=== PATIENT | female | born 1960 | race Hispanic/Latino ===

== ENCOUNTER 2020-12-05 16:25 | Emergency (ER) | payer SELFPAY ==
[2020-12-05 16:49] LABS: BASOPHILS % (AUTO) 0.9 % (0.0-5.0); EOSINOPHILS % (AUTO) 1.6 % (0.0-8.0); HEMATOCRIT 39.6 % (36-48); LYMPHOCYTES % (AUTO) 38.2 % (21.0-51.0); MEAN CORPUSCULAR HEMOGLOBIN 33.5 pg (27.0-33.0); MEAN CORPUSCULAR HGB CONC 35.9 g/dL (32.0-36.0); MEAN CORPUSCULAR VOLUME 93.4 fL (79-99); MONOCYTES % (AUTO) 9.7 % (3.0-13.0); NEUTROPHILS % (AUTO) 49.2 % (40.0-77.0); PLATELET COUNT (AUTO) 215 K/uL (130-400); RED BLOOD CELL COUNT(AUTO) 4.24 MIL/uL (4.00-5.50); RED CELL DISTRIBUTION WIDTH 11.8 % (11.0-15.5); WHITE BLOOD COUNT (AUTO) 5.6 K/uL (4.8-10.8)
[2020-12-05 17:02] LABS: INR 0.98 (0.85-1.15); PROTHROMBIN TIME 10.7 SEC (9.6-11.6)
[2020-12-05 17:03] LABS: PARTIAL THROMBOPLASTIN TIME 24.3 SEC (26.3-35.5)
[2020-12-05 17:15] LABS: ALANINE AMINOTRANSFERASE 106 U/L (12-78); ALBUMIN 4.3 g/dL (3.5-5.0); ASPARTATE AMINOTRANSFERASE 125 U/L (10-37); BILIRUBIN,TOTAL 0.3 mg/dL (0.2-1.0); CARBON DIOXIDE 26 mmol/L (21-32); CHLORIDE 102 mmol/L (101-111); CREATININE 0.8 mg/dL (0.5-1.5); GLOMERULAR FILTR. RATE CALC 78 mL/min (>60); GLUCOSE,RANDOM 117 mg/dL (70-105); POTASSIUM 3.9 mmol/L (3.5-5.1); SODIUM SERUM 139 mmol/L (136-145); TOTAL PROTEIN, SERUM 8.3 g/dL (6.0-8.3); UREA NITROGEN, BLOOD 4 mg/dL (7-18)
[2020-12-05 17:20] LABS: ACETAMINOPHEN < 1 mcg/mL (10-30); SALICYLATE < 2.8 mg/dL (2.8-20.0)
[2020-12-05 17:57] LABS: AMPHET/METH SCREEN,URINE NEGATIVE (NEGATIVE); BARBITURATE SCREEN, URINE NEGATIVE (NEGATIVE); BENZODIAZEPINES SCREEN,URINE NEGATIVE (NEGATIVE); CANNABINOID SCREEN,URINE NEGATIVE (NEGATIVE); COCAINE SCREEN,URINE POSITIVE (NEGATIVE); OPIATE SCREEN,URINE NEGATIVE (NEGATIVE); PHENCYCLIDINE SCREEN,URINE NEGATIVE (NEGATIVE)
== END 2020-12-05 19:03 | disposition home or self-care (01) ==
LOC: EDH 16:25
DX: F10.10 Alcohol abuse, uncomplicated (principal); F14.10 Cocaine abuse, uncomplicated; Z20.822 Contact with and (suspected) exposure to COVID-19
CPT/HCPCS: 36415; 80053; 80305; 84484; 85025; 85610; 85730; 87426; 93005; 99284; G0481

== ENCOUNTER 2023-01-28 21:23 | Inpatient (IN) | payer OTHER ==
[~2023-01-28] VITALS: Ht 154.9 cm; Wt 54.4 kg
[2023-01-28] MEDS ORDERED: ONDANSETRON 4MG INJ ONE (22:42)
[2023-01-28 23:08] LABS: BASOPHILS % (AUTO) 0.6 % (0.0-5.0); HEMATOCRIT 31.4 % (36-48); LYMPHOCYTES % (AUTO) 35.6 % (21.0-51.0); MEAN CORPUSCULAR HEMOGLOBIN 34.4 pg (27.0-33.0); MEAN CORPUSCULAR HGB CONC 35.7 g/dL (32.0-36.0); MEAN CORPUSCULAR VOLUME 96.3 fL (79-99); MONOCYTES % (AUTO) 12.2 % (3.0-13.0); NEUTROPHILS % (AUTO) 50.2 % (40.0-77.0); PLATELET COUNT (AUTO) 131 K/uL (130-400); RED BLOOD CELL COUNT(AUTO) 3.26 MIL/uL (4.00-5.50); RED CELL DISTRIBUTION WIDTH 11.2 % (11.0-15.5); WHITE BLOOD COUNT (AUTO) 4.9 K/uL (4.8-10.8)
[2023-01-28 23:23] LABS: CREATININE 0.8 mg/dL (0.5-1.5); POTASSIUM 4.6 mmol/L (3.5-5.1)
[2023-01-28 23:27] LABS: INR 1.02 (0.85-1.15); PROTHROMBIN TIME 11.1 SEC (9.6-11.6)
[2023-01-28 23:28] LABS: ALBUMIN 3.7 g/dL (3.5-5.0); PARTIAL THROMBOPLASTIN TIME 28.9 SEC (26.3-35.5); TOTAL PROTEIN, SERUM 7.3 g/dL (6.0-8.3)
[2023-01-29] LABS: APPEARANCE,URINE CLEAR (CLEAR); BILIRUBIN,URINE NEGATIVE (NEGATIVE); COLOR,URINE COLORLESS (YELLOW); GLUCOSE, URINE (UA) NEGATIVE (NEGATIVE); KETONES,URINE NEGATIVE (NEGATIVE); LEUKOCYTE ESTERASE ,URINE NEGATIVE Leu/uL (NEGATIVE); NITRATE,URINE NEGATIVE (NEGATIVE); OCCULT BLOOD,URINE SMALL (NEGATIVE); PH,URINE 5.5 (5.0-8.0); PROTEIN,URINE NEGATIVE (NEGATIVE); UROBILINOGEN,URINE 0.2 mg/dL (0.2-1.0)
[2023-01-29 00:06] LABS: BACTERIA,URINE RARE /HPF (None Seen); MUCUS,URINE RARE LPF (None Seen); RBC,URINE 0-1 /HPF (0-1)
[2023-01-29] MEDS ORDERED: ACETAMINOPHEN 325 MG TAB PO PRN ×2 (02:00)
[2023-01-29] MEDS ORDERED: ONDANSETRON 4MG INJ IV PRN (02:00)
[2023-01-29] MEDS: 0.9%NACL 1000ML 1,000 ML IV SCH ×2 (04:10→13:36)
[2023-01-29] MEDS: PANTOPRAZOLE 40 MG/VIAL IVP SCH ×2 (04:10→09:28)
[2023-01-29] MEDS: INSULIN HUMULIN R 100 UNIT/ML 3ML SQ SCH ×3 (06:00→17:32)
[2023-01-29 08:37] LABS: BASOPHILS % (AUTO) 0.9 % (0.0-5.0); EOSINOPHILS % (AUTO) 2.1 % (0.0-8.0); HEMATOCRIT 32.2 % (36-48); LYMPHOCYTES % (AUTO) 21.2 % (21.0-51.0); MEAN CORPUSCULAR HEMOGLOBIN 34.7 pg (27.0-33.0); MEAN CORPUSCULAR HGB CONC 35.7 g/dL (32.0-36.0); MEAN CORPUSCULAR VOLUME 97.3 fL (79-99); MONOCYTES % (AUTO) 13.9 % (3.0-13.0); NEUTROPHILS % (AUTO) 61.7 % (40.0-77.0); PLATELET COUNT (AUTO) 119 K/uL (130-400); RED BLOOD CELL COUNT(AUTO) 3.31 MIL/uL (4.00-5.50); RED CELL DISTRIBUTION WIDTH 11.3 % (11.0-15.5); WHITE BLOOD COUNT (AUTO) 4.3 K/uL (4.8-10.8)
[2023-01-29 08:48] LABS: CREATININE 0.8 mg/dL (0.5-1.5); POTASSIUM 4.4 mmol/L (3.5-5.1)
[2023-01-29 08:50] LABS: ALBUMIN 3.6 g/dL (3.5-5.0); TOTAL PROTEIN, SERUM 7.4 g/dL (6.0-8.3)
[2023-01-29 09:06] LABS: % IRON SATURATION 95.4 % (22-44)
[2023-01-29 18:13] VITALS: BP 117/54
== END 2023-01-29 19:35 | disposition left against medical advice (07) | DRG 378 ==
LOC: EDH 21:23 → EDHIP 21:24
PROVIDERS: ADMIT Hospitalist; ATTEND Hospitalist
DX: K92.2 Gastrointestinal hemorrhage, unspecified (principal); E87.1 Hypo-osmolality and hyponatremia; K80.20 Calculus of gallbladder without cholecystitis without obstruction; E11.9 Type 2 diabetes mellitus without complications; E78.5 Hyperlipidemia, unspecified; I10 Essential (primary) hypertension; F41.9 Anxiety disorder, unspecified
CPT/HCPCS: 36415; 74176; 80053; 81001; 82140; 82270; 82948; 83540; 83550; 83605; 84484; 85025; 85610; 85730; 86850; 86900; 86901; 93005; C9113; G0378; J2405; J7030

== ENCOUNTER 2024-04-19 22:55 | Inpatient (IN) | payer SELFPAY ==
[~2024-04-19] VITALS: Ht 156.2 cm; Wt 62.6 kg
[2024-04-19 23:15] LABS: BASOPHILS # (AUTO) 0.04 K/uL (0.00-0.20); BASOPHILS % (AUTO) 0.4 % (0.0-5.0); EOSINOPHILS # (AUTO) 0.16 K/uL (0.00-0.70); EOSINOPHILS % (AUTO) 1.5 % (0.0-8.0); HEMATOCRIT 26.5 % (36-48); IMMATURE GRANULOCYTE ABSOLUTE 0.05 K/uL (0-1); LYMPHOCYTES # (AUTO) 2.1 K/uL (1.0-4.8); LYMPHOCYTES % (AUTO) 20.4 % (21.0-51.0); MEAN CORPUSCULAR HEMOGLOBIN 33.1 pg (27.0-33.0); MEAN CORPUSCULAR HGB CONC 34.3 g/dL (32.0-36.0); MEAN CORPUSCULAR VOLUME 96.4 fL (79-99); MONOCYTES # (AUTO) 1.5 K/uL (0.1-1.0); MONOCYTES % (AUTO) 14.5 % (3.0-13.0); NEUTROPHILS # (AUTO) 6.5 K/uL (1.8-7.7); NEUTROPHILS % (AUTO) 62.7 % (40.0-77.0); PLATELET COUNT (AUTO) 219 K/uL (130-400); RED BLOOD CELL COUNT(AUTO) 2.75 MIL/uL (4.00-5.50); RED CELL DISTRIBUTION WIDTH 19.7 % (11.0-15.5); WHITE BLOOD COUNT (AUTO) 10.4 K/uL (4.8-10.8)
[2024-04-19 23:29] LABS: ALBUMIN 2.2 g/dL (3.5-5.0); BILIRUBIN,TOTAL 1.9 mg/dL (0.2-1.0); POTASSIUM 3.1 mmol/L (3.5-5.1); TOTAL PROTEIN, SERUM 7.1 g/dL (6.0-8.3)
[2024-04-20] VITALS (8 sets, daily range): BP systolic 96–130; BP diastolic 48–104; PULSE 71–84; RESP 17–20; TEMP 97.8–98.7; O2SAT 96–100
[2024-04-20] MEDS: ondanSETRON 4MG INJ IVP ONE (00:08)
[2024-04-20] MEDS: morPHINE 4 MG SYG IVP ONE ×2 (00:08→04:40)
[2024-04-20] MEDS: ZOSYN 3.375GM +NS 50ML IVPB ONE (04:39)
[2024-04-20] MEDS: 0.9%NACL 1000ML 1,000 ML IV SCH (06:14)
[2024-04-20] MEDS: PoTASSium chloRIDE 20MEQ/100ML 100 ML IV PRN (06:14)
[2024-04-20 06:28] LABS: APPEARANCE,URINE CLEAR (CLEAR); BILIRUBIN,URINE NEGATIVE (NEGATIVE); COLOR,URINE YELLOW (YELLOW); GLUCOSE, URINE (UA) NEGATIVE (NEGATIVE); KETONES,URINE NEGATIVE (NEGATIVE); LEUKOCYTE ESTERASE ,URINE NEGATIVE Leu/uL (NEGATIVE); NITRATE,URINE NEGATIVE (NEGATIVE); OCCULT BLOOD,URINE NEGATIVE (NEGATIVE); PH,URINE 6.5 (5.0-8.0); PROTEIN,URINE NEGATIVE (NEGATIVE); UROBILINOGEN,URINE 0.2 mg/dL (0.2-1.0)
[2024-04-20 06:39] LABS: BASOPHILS # (AUTO) 0.03 K/uL (0.00-0.20); BASOPHILS % (AUTO) 0.5 % (0.0-5.0); EOSINOPHILS # (AUTO) 0.12 K/uL (0.00-0.70); EOSINOPHILS % (AUTO) 1.9 % (0.0-8.0); HEMATOCRIT 25.8 % (36-48); IMMATURE GRANULOCYTE ABSOLUTE 0.02 K/uL (0-1); LYMPHOCYTES # (AUTO) 1.3 K/uL (1.0-4.8); LYMPHOCYTES % (AUTO) 20.3 % (21.0-51.0); MEAN CORPUSCULAR HEMOGLOBIN 32.8 pg (27.0-33.0); MEAN CORPUSCULAR HGB CONC 32.9 g/dL (32.0-36.0); MEAN CORPUSCULAR VOLUME 99.6 fL (79-99); MONOCYTES # (AUTO) 0.9 K/uL (0.1-1.0); MONOCYTES % (AUTO) 14.3 % (3.0-13.0); NEUTROPHILS % (AUTO) 62.7 % (40.0-77.0); PLATELET COUNT (AUTO) 170 K/uL (130-400); RED BLOOD CELL COUNT(AUTO) 2.59 MIL/uL (4.00-5.50); RED CELL DISTRIBUTION WIDTH 19.8 % (11.0-15.5); WHITE BLOOD COUNT (AUTO) 6.3 K/uL (4.8-10.8)
[2024-04-20 06:51] LABS: ALBUMIN 1.8 g/dL (3.5-5.0); BILIRUBIN,TOTAL 1.6 mg/dL (0.2-1.0); CREATININE 0.9 mg/dL (0.5-1.0); MAGNESIUM 1.9 mg/dL (1.80-2.40); POTASSIUM 3.4 mmol/L (3.5-5.1); TOTAL PROTEIN, SERUM 6.7 g/dL (6.0-8.3)
[2024-04-20 07:04] LABS: % IRON SATURATION 22.1 % (22-44)
[2024-04-20 07:15] LABS: ADD UA MICROSCOPIC NO
[2024-04-20] MEDS ORDERED: METF-446 PO (08:14)
[2024-04-20] MEDS ORDERED: ESCI5TAB PO (08:14)
[2024-04-20] MEDS ORDERED: AZIL80TA PO (08:14)
[2024-04-20] MEDS ORDERED: PITA4TAB2 PO (08:14)
[2024-04-20] MEDS ORDERED: ESCI-8 PO (08:14)
[2024-04-20] MEDS: PANTOPrazole 40 MG/VIAL IVP SCH (09:03)
[2024-04-20] MEDS: DEXTROSE 50%-WATER 50 ML DISP.SYRIN IV ONE ×3 (11:50→20:05)
[2024-04-20] MEDS: ZOSYN 3.375GM+NS 50ML 50 ML IV SCH (13:38)
[2024-04-20] MEDS: hydroMORPHone 0.5 MG SYG (0.5MG/0.5ML) IVP ONE (13:52)
[2024-04-20] MEDS ORDERED: morPHINE 2 MG SYG IVP PRN (14:00)
[2024-04-20] MEDS: atorVAStatin 20 MG TABLET PO SCH (20:05)
[2024-04-20] MEDS: DEXTROSE 5 % AND 0.9 % NACL 1,000 ML IV SCH (20:05)
[2024-04-20] MEDS: hydroMORPHone 1 MG INJ IVP PRN (20:13)
[2024-04-21] VITALS (12 sets, daily range): BP systolic 105–133; BP diastolic 43–62; PULSE 78–103; RESP 16–19; TEMP 98–98.9; O2SAT 98–100
[2024-04-21 04:00] LABS: BASOPHILS # (AUTO) 0.04 K/uL (0.00-0.20); BASOPHILS % (AUTO) 0.6 % (0.0-5.0); EOSINOPHILS # (AUTO) 0.15 K/uL (0.00-0.70); EOSINOPHILS % (AUTO) 2.2 % (0.0-8.0); HEMATOCRIT 24.8 % (36-48); IMMATURE GRANULOCYTE ABSOLUTE 0.02 K/uL (0-1); LYMPHOCYTES # (AUTO) 0.8 K/uL (1.0-4.8); LYMPHOCYTES % (AUTO) 11.8 % (21.0-51.0); MEAN CORPUSCULAR HEMOGLOBIN 32.5 pg (27.0-33.0); MEAN CORPUSCULAR HGB CONC 32.7 g/dL (32.0-36.0); MEAN CORPUSCULAR VOLUME 99.6 fL (79-99); MONOCYTES # (AUTO) 0.9 K/uL (0.1-1.0); MONOCYTES % (AUTO) 12.6 % (3.0-13.0); NEUTROPHILS % (AUTO) 72.5 % (40.0-77.0); PLATELET COUNT (AUTO) 177 K/uL (130-400); RED BLOOD CELL COUNT(AUTO) 2.49 MIL/uL (4.00-5.50); RED CELL DISTRIBUTION WIDTH 19.8 % (11.0-15.5); WHITE BLOOD COUNT (AUTO) 6.9 K/uL (4.8-10.8)
[2024-04-21 04:13] LABS: INR 1.54 (0.85-1.15); PROTHROMBIN TIME 16.1 SEC (9.6-11.6)
[2024-04-21 04:14] LABS: PARTIAL THROMBOPLASTIN TIME 32.8 SEC (26.3-35.5)
[2024-04-21 04:17] LABS: ALBUMIN 1.6 g/dL (3.5-5.0); CREATININE 0.8 mg/dL (0.5-1.0); MAGNESIUM 1.5 mg/dL (1.80-2.40); POTASSIUM 3.8 mmol/L (3.5-5.1); TOTAL PROTEIN, SERUM 6.3 g/dL (6.0-8.3)
[2024-04-21] MEDS ORDERED: NON-FORMULARY MEDICATION 1 EACH (Escitalopram Oxalate 10 MG) PO SCH (09:00)
[2024-04-21 10:26] LABS: % IRON SATURATION 49.3 % (22-44)
[2024-04-21 13:47] LABS: BODY FLUID RBC 145 /cu. mm.; BODY FLUID WBC 39 /cu. mm.
[2024-04-21 14:37] LABS: APPEARANCE BODY FLUID CLEAR (CLEAR); COLOR,BODY FLUID YELLOW (LT YELLOW); SPECIMENTYPE,BODY FLUID ASCITES; TOTAL VOLUME,BODY FLUID 1500 mL
[2024-04-21 16:50] LABS: HEPATITIS A IGM ANTIBODY Non-Reactive (Nonreactive); HEPATITIS B CORE IGM ANTIBODY Non-Reactive (Negative); HEPATITIS B SURFACE ANTIGEN Non-Reactive (Nonreactive); HEPATITIS C ANTIBODY Non-Reactive (Nonreactive)
[2024-04-21 18:04] LABS: BF LYMPHOCYTE 85 %; BF MONOCYTE 10 %; BF TOTAL CELLS COUNTED 100
[2024-04-22 04:47] VITALS: BP 94/51; PULSE 82; RESP 18; TEMP 98.1
[2024-04-22 05:30] LABS: BASOPHILS # (AUTO) 0.02 K/uL (0.00-0.20); BASOPHILS % (AUTO) 0.3 % (0.0-5.0); EOSINOPHILS # (AUTO) 0.12 K/uL (0.00-0.70); EOSINOPHILS % (AUTO) 1.9 % (0.0-8.0); HEMATOCRIT 22.4 % (36-48); IMMATURE GRANULOCYTE ABSOLUTE 0.04 K/uL (0-1); LYMPHOCYTES # (AUTO) 1.2 K/uL (1.0-4.8); LYMPHOCYTES % (AUTO) 19.2 % (21.0-51.0); MEAN CORPUSCULAR HGB CONC 32.6 g/dL (32.0-36.0); MEAN CORPUSCULAR VOLUME 101.4 fL (79-99); MONOCYTES # (AUTO) 0.8 K/uL (0.1-1.0); MONOCYTES % (AUTO) 12.9 % (3.0-13.0); NEUTROPHILS % (AUTO) 65.1 % (40.0-77.0); PLATELET COUNT (AUTO) 142 K/uL (130-400); RED BLOOD CELL COUNT(AUTO) 2.21 MIL/uL (4.00-5.50); RED CELL DISTRIBUTION WIDTH 19.4 % (11.0-15.5); WHITE BLOOD COUNT (AUTO) 6.2 K/uL (4.8-10.8)
[2024-04-22 05:53] LABS: ALBUMIN 1.4 g/dL (3.5-5.0); BILIRUBIN,TOTAL 2.2 mg/dL (0.2-1.0); CREATININE 0.7 mg/dL (0.5-1.0); MAGNESIUM 1.5 mg/dL (1.80-2.40); POTASSIUM 3.1 mmol/L (3.5-5.1); TOTAL PROTEIN, SERUM 5.5 g/dL (6.0-8.3)
[2024-04-22 08:00] VITALS: BP 92/52; PULSE 73; RESP 16; TEMP 98; O2SAT 98
[2024-04-22] MEDS: MAGNESIUM 2GM PREMIX 50ML 50 ML IV PRN (08:59)
[2024-04-22] MEDS: PoTASSium chloRIDE 20MEQ ER 20 MEQ ERTAB PO PRN (09:18)
[2024-04-22 12:00] VITALS: BP 97/54; PULSE 76; RESP 16; TEMP 97.8
[2024-04-22] MEDS: ondanSETRON 4MG INJ IV PRN (14:58)
[2024-04-22 16:00] VITALS: BP 108/56; PULSE 80; RESP 16; TEMP 98
[2024-04-22 17:45] LABS: MAGNESIUM 2.4 mg/dL (1.80-2.40); POTASSIUM 4.6 mmol/L (3.5-5.1)
[2024-04-22 20:00] VITALS: BP 90/51; PULSE 70; RESP 18; TEMP 98.3; O2SAT 98
[2024-04-23] VITALS (28 sets, daily range): BP systolic 91–141; BP diastolic 34–84; PULSE 68–107; RESP 12–20; TEMP 97.6–98.7; O2SAT 95
[2024-04-23 05:02] LABS: BASOPHILS # (AUTO) 0.04 K/uL (0.00-0.20); BASOPHILS % (AUTO) 0.6 % (0.0-5.0); EOSINOPHILS # (AUTO) 0.18 K/uL (0.00-0.70); EOSINOPHILS % (AUTO) 2.7 % (0.0-8.0); HEMATOCRIT 23.4 % (36-48); IMMATURE GRANULOCYTE ABSOLUTE 0.03 K/uL (0-1); LYMPHOCYTES # (AUTO) 1.1 K/uL (1.0-4.8); LYMPHOCYTES % (AUTO) 17.4 % (21.0-51.0); MEAN CORPUSCULAR HGB CONC 32.1 g/dL (32.0-36.0); MEAN CORPUSCULAR VOLUME 103.1 fL (79-99); MONOCYTES # (AUTO) 0.7 K/uL (0.1-1.0); MONOCYTES % (AUTO) 11.1 % (3.0-13.0); NEUTROPHILS # (AUTO) 4.4 K/uL (1.8-7.7); NEUTROPHILS % (AUTO) 67.7 % (40.0-77.0); PLATELET COUNT (AUTO) 163 K/uL (130-400); RED BLOOD CELL COUNT(AUTO) 2.27 MIL/uL (4.00-5.50); RED CELL DISTRIBUTION WIDTH 19.6 % (11.0-15.5); WHITE BLOOD COUNT (AUTO) 6.6 K/uL (4.8-10.8)
[2024-04-23 05:10] LABS: CREATININE 0.8 mg/dL (0.5-1.0); MAGNESIUM 2.1 mg/dL (1.80-2.40); POTASSIUM 4.8 mmol/L (3.5-5.1)
[2024-04-23] MEDS: INDOMETHACIN 100 MG SUPP.RECT RC ONE (11:30)
[2024-04-23] MEDS ORDERED: LIDOCAINE PF 100MG/5ML (2%) SYRINGE 5ML ONE (12:45)
[2024-04-23] MEDS ORDERED: FENTanyl CITRate PF 50 MCG/1 ML 2ML VIAL ONE (12:45)
[2024-04-23] MEDS ORDERED: ondanSETRON 4MG INJ ONE (12:46)
[2024-04-23] MEDS ORDERED: proPOFol 10 MG/ML 20ML VIAL IV ONE (12:46)
[2024-04-23] MEDS ORDERED: IOHEXOL-350 50ML VIAL IV ONE (14:04)
[2024-04-24] VITALS (15 sets, daily range): BP systolic 90–130; BP diastolic 38–74; PULSE 67–99; RESP 16–21; TEMP 97.6–98.4; O2SAT 99–100
[2024-04-24 09:03] LABS: BASOPHILS # (AUTO) 0.02 K/uL (0.00-0.20); BASOPHILS % (AUTO) 0.3 % (0.0-5.0); EOSINOPHILS # (AUTO) 0.14 K/uL (0.00-0.70); EOSINOPHILS % (AUTO) 2.1 % (0.0-8.0); HEMATOCRIT 24.9 % (36-48); IMMATURE GRANULOCYTE ABSOLUTE 0.05 K/uL (0-1); LYMPHOCYTES # (AUTO) 0.7 K/uL (1.0-4.8); LYMPHOCYTES % (AUTO) 9.8 % (21.0-51.0); MEAN CORPUSCULAR HEMOGLOBIN 33.5 pg (27.0-33.0); MEAN CORPUSCULAR HGB CONC 32.1 g/dL (32.0-36.0); MEAN CORPUSCULAR VOLUME 104.2 fL (79-99); MONOCYTES # (AUTO) 0.8 K/uL (0.1-1.0); MONOCYTES % (AUTO) 11.4 % (3.0-13.0); NEUTROPHILS % (AUTO) 75.6 % (40.0-77.0); PLATELET COUNT (AUTO) 183 K/uL (130-400); RED BLOOD CELL COUNT(AUTO) 2.39 MIL/uL (4.00-5.50); RED CELL DISTRIBUTION WIDTH 19.5 % (11.0-15.5); WHITE BLOOD COUNT (AUTO) 6.6 K/uL (4.8-10.8)
[2024-04-24 09:16] LABS: CREATININE 0.8 mg/dL (0.5-1.0); POTASSIUM 3.9 mmol/L (3.5-5.1)
[2024-04-24 09:23] LABS: ALBUMIN 1.6 g/dL (3.5-5.0); BILIRUBIN,TOTAL 2.6 mg/dL (0.2-1.0); MAGNESIUM 1.8 mg/dL (1.80-2.40); TOTAL PROTEIN, SERUM 6.4 g/dL (6.0-8.3)
[2024-04-24] MEDS: hydroMORPHone 1 MG INJ IVP PRN (11:29)
[2024-04-24] MEDS ORDERED: LIDOCAINE HCL 400MG/20ML VIAL ONE (17:49)
[2024-04-24] MEDS ORDERED: HEParin-NS 1,000 UNIT/500 ML 500 ML IV ONE (17:50)
[2024-04-24] MEDS ORDERED: IOHEXOL-350 50ML VIAL IV ONE (17:50)
[2024-04-24] MEDS ORDERED: FENTanyl CITRate PF 50 MCG/1 ML 2ML VIAL ONE (18:14)
[2024-04-24] MEDS ORDERED: MIDAZOLAM HCL 1 MG/ML 2ML VIAL ONE (18:15)
[2024-04-25] VITALS (9 sets, daily range): BP systolic 99–130; BP diastolic 41–68; PULSE 20–99; RESP 18–20; TEMP 97.6–98.2; O2SAT 98–99
[2024-04-25 11:13] LABS: CREATININE 0.8 mg/dL (0.5-1.0); POTASSIUM 3.9 mmol/L (3.5-5.1)
[2024-04-25 11:20] LABS: ALBUMIN 1.4 g/dL (3.5-5.0); BILIRUBIN,TOTAL 2.5 mg/dL (0.2-1.0); MAGNESIUM 2.1 mg/dL (1.80-2.40); TOTAL PROTEIN, SERUM 6.2 g/dL (6.0-8.3)
[2024-04-25] MEDS: SIMETHICONE 80 MG TAB.CHEW PO SCH (12:12)
[2024-04-25] MEDS: acetaMINOPHEN WITH coDEINE 1 TAB TAB PO PRN (17:07)
[2024-04-25] MEDS: acetaMINOPHEN WITH coDEINE 1 TAB TAB PO ONE (19:58)
[2024-04-26] VITALS (8 sets, daily range): BP systolic 96–110; BP diastolic 42–58; PULSE 78–97; RESP 18–20; TEMP 97.1–98.4; O2SAT 96–98
[2024-04-26 05:18] LABS: BASOPHILS # (AUTO) 0.02 K/uL (0.00-0.20); BASOPHILS % (AUTO) 0.3 % (0.0-5.0); EOSINOPHILS # (AUTO) 0.13 K/uL (0.00-0.70); EOSINOPHILS % (AUTO) 2.1 % (0.0-8.0); IMMATURE GRANULOCYTE ABSOLUTE 0.03 K/uL (0-1); LYMPHOCYTES # (AUTO) 0.6 K/uL (1.0-4.8); LYMPHOCYTES % (AUTO) 9.5 % (21.0-51.0); MEAN CORPUSCULAR HEMOGLOBIN 32.6 pg (27.0-33.0); MEAN CORPUSCULAR HGB CONC 32.6 g/dL (32.0-36.0); MONOCYTES # (AUTO) 0.8 K/uL (0.1-1.0); MONOCYTES % (AUTO) 11.8 % (3.0-13.0); NEUTROPHILS # (AUTO) 4.8 K/uL (1.8-7.7); NEUTROPHILS % (AUTO) 75.8 % (40.0-77.0); PLATELET COUNT (AUTO) 139 K/uL (130-400); RED CELL DISTRIBUTION WIDTH 19.7 % (11.0-15.5); WHITE BLOOD COUNT (AUTO) 6.3 K/uL (4.8-10.8)
[2024-04-26 05:40] LABS: ALBUMIN 1.3 g/dL (3.5-5.0); BILIRUBIN,TOTAL 2.5 mg/dL (0.2-1.0); CREATININE 0.9 mg/dL (0.5-1.0); MAGNESIUM 1.8 mg/dL (1.80-2.40); TOTAL PROTEIN, SERUM 5.7 g/dL (6.0-8.3)
[2024-04-26 06:02] LABS: POTASSIUM 2.9 mmol/L (3.5-5.1)
[2024-04-26] MEDS: SIMETHICONE 80 MG TAB.CHEW PO ONE (06:05)
[2024-04-26] MEDS: PoTASSium chloRIDE 20MEQ/100ML 100 ML IV PRN (06:06)
[2024-04-26] MEDS: PoTASSium chl 10% ELIXIR 20MEQ 20 MEQ/15 ML UDCUP PO PRN (08:24)
[2024-04-26] MEDS: HYDROcodone/APAP 5/325 1 TAB TABLET PO PRN (11:23)
[2024-04-27 03:15] VITALS: BP 110/46; PULSE 91; RESP 16; TEMP 98.1
[2024-04-27 06:00] LABS: BASOPHILS # (AUTO) 0.02 K/uL (0.00-0.20); BASOPHILS % (AUTO) 0.3 % (0.0-5.0); EOSINOPHILS # (AUTO) 0.15 K/uL (0.00-0.70); EOSINOPHILS % (AUTO) 2.2 % (0.0-8.0); HEMATOCRIT 21.6 % (36-48); IMMATURE GRANULOCYTE ABSOLUTE 0.04 K/uL (0-1); LYMPHOCYTES # (AUTO) 0.9 K/uL (1.0-4.8); LYMPHOCYTES % (AUTO) 12.5 % (21.0-51.0); MEAN CORPUSCULAR HEMOGLOBIN 32.7 pg (27.0-33.0); MEAN CORPUSCULAR HGB CONC 32.9 g/dL (32.0-36.0); MEAN CORPUSCULAR VOLUME 99.5 fL (79-99); MONOCYTES # (AUTO) 0.7 K/uL (0.1-1.0); MONOCYTES % (AUTO) 10.6 % (3.0-13.0); NEUTROPHILS # (AUTO) 5.1 K/uL (1.8-7.7); NEUTROPHILS % (AUTO) 73.8 % (40.0-77.0); PLATELET COUNT (AUTO) 130 K/uL (130-400); RED BLOOD CELL COUNT(AUTO) 2.17 MIL/uL (4.00-5.50); RED CELL DISTRIBUTION WIDTH 20.4 % (11.0-15.5); WHITE BLOOD COUNT (AUTO) 6.9 K/uL (4.8-10.8)
[2024-04-27 06:09] LABS: INR 2.17 (0.85-1.15); PROTHROMBIN TIME 22.1 SEC (9.6-11.6)
[2024-04-27 06:25] LABS: ALBUMIN 1.1 g/dL (3.5-5.0); BILIRUBIN,TOTAL 3.2 mg/dL (0.2-1.0); MAGNESIUM 2.3 mg/dL (1.80-2.40); POTASSIUM 4.1 mmol/L (3.5-5.1); TOTAL PROTEIN, SERUM 5.4 g/dL (6.0-8.3)
[2024-04-27 08:00] VITALS: BP 95/44; PULSE 98; RESP 16; TEMP 98.7
[2024-04-27 12:00] VITALS: BP 98/51; PULSE 98; RESP 18; TEMP 98.7
[2024-04-27 12:17] LABS: HEMATOCRIT 23.9 % (36-48)
[2024-04-27] MEDS ORDERED: AMOX1TAB16 PO (13:00)
[2024-04-27] MEDS ORDERED: TRAM50TA4 PO (13:02)
== END 2024-04-27 17:30 | disposition home or self-care (01) | DRG 432 ==
LOC: EDH 22:55 → EDHIP 22:56 → 4AH 04-20 09:50
PROVIDERS: ADMIT Hospitalist; ATTEND Hospitalist
PROC: 0W9G3ZZ Drainage of Peritoneal Cavity, Percutaneous Approach (ICD-10-PCS; principal; 2024-04-21)
PROC: 0FJD8ZZ Inspection of Pancreatic Duct, Via Natural or Artificial Opening Endoscopic (ICD-10-PCS; 2024-04-23)
PROC: 0F943ZZ Drainage of Gallbladder, Percutaneous Approach (ICD-10-PCS; 2024-04-24)
DX: K74.60 Unspecified cirrhosis of liver (principal); K85.90 Acute pancreatitis without necrosis or infection, unspecified; K80.00 Calculus of gallbladder with acute cholecystitis without obstruction; D68.9 Coagulation defect, unspecified; K80.42 Calculus of bile duct with acute cholecystitis without obstruction; E44.0 Moderate protein-calorie malnutrition; R18.8 Other ascites; K76.0 Fatty (change of) liver, not elsewhere classified; E87.6 Hypokalemia; D64.9 Anemia, unspecified; I10 Essential (primary) hypertension; D69.6 Thrombocytopenia, unspecified; E11.9 Type 2 diabetes mellitus without complications; E78.00 Pure hypercholesterolemia, unspecified; F41.9 Anxiety disorder, unspecified; F32.A Depression, unspecified; R79.89 Other specified abnormal findings of blood chemistry; E78.5 Hyperlipidemia, unspecified; Z98.51 Tubal ligation status
CPT/HCPCS: 10030; 36415; 43260; 47490; 49083; 70450; 71045; 74018; 74176; 74181; 74328; 74330; 76705; 78226; 80048; 80053; 80074; 81003; 82150; 82550; 82607; 82728; 82746; 82948; 82977; 83540; 83550; 83615; 83690; 83735; 84132; 84484; 85014; 85018; 85025; 85610; 85730; 86140; 87071; 87205; 89051; 99156; 99157; A9537; C1729; C1769; C1894; G0378; J1170; J1644; J2001; J2250; J2270; J2405; J2470; J2543; J2704; J3010; J3475; J3480; J3490; J7030; J7070; Q9967; A4657; A7002; S8037

== ENCOUNTER 2024-05-06 09:26 | Inpatient (IN) | payer SELFPAY ==
[~2024-05-06] VITALS: Ht 152.4 cm; Wt 62.6 kg
[~2024-05-06 09:26] MED LIST: AMOX1TAB16 PO; AZIL80TA PO; ESCI5TAB PO; METF-446 PO; PITA4TAB2 PO; TRAM50TA4 PO
[2024-05-06 10:01] LABS: BASOPHILS # (AUTO) 0.02 K/uL (0.00-0.20); BASOPHILS % (AUTO) 0.2 % (0.0-5.0); EOSINOPHILS # (AUTO) 0.11 K/uL (0.00-0.70); EOSINOPHILS % (AUTO) 0.9 % (0.0-8.0); HEMATOCRIT 23.9 % (36-48); IMMATURE GRANULOCYTE ABSOLUTE 0.07 K/uL (0-1); LYMPHOCYTES # (AUTO) 0.8 K/uL (1.0-4.8); LYMPHOCYTES % (AUTO) 6.5 % (21.0-51.0); MEAN CORPUSCULAR HEMOGLOBIN 32.7 pg (27.0-33.0); MEAN CORPUSCULAR HGB CONC 34.7 g/dL (32.0-36.0); MEAN CORPUSCULAR VOLUME 94.1 fL (79-99); MONOCYTES % (AUTO) 8.1 % (3.0-13.0); NEUTROPHILS # (AUTO) 10.5 K/uL (1.8-7.7); NEUTROPHILS % (AUTO) 83.7 % (40.0-77.0); PLATELET COUNT (AUTO) 116 K/uL (130-400); RED BLOOD CELL COUNT(AUTO) 2.54 MIL/uL (4.00-5.50); RED CELL DISTRIBUTION WIDTH 17.5 % (11.0-15.5); WHITE BLOOD COUNT (AUTO) 12.5 K/uL (4.8-10.8)
[2024-05-06 10:06] LABS: CREATININE 3.1 mg/dL (0.5-1.0); POTASSIUM 4.2 mmol/L (3.5-5.1)
[2024-05-06 10:10] LABS: ALBUMIN 1.3 g/dL (3.5-5.0); BILIRUBIN,DIRECT 5.5 mg/dL (0.0-0.3); BILIRUBIN,TOTAL 6.6 mg/dL (0.2-1.0); TOTAL PROTEIN, SERUM 7.1 g/dL (6.0-8.3)
[2024-05-06 11:17] LABS: APPEARANCE,URINE CLOUDY (CLEAR); BILIRUBIN,URINE 2 mg/dL (NEGATIVE); COLOR,URINE DARK-YELLOW (YELLOW); GLUCOSE, URINE (UA) NEGATIVE (NEGATIVE); KETONES,URINE NEGATIVE (NEGATIVE); LEUKOCYTE ESTERASE ,URINE 25 Leu/uL (NEGATIVE); NITRATE,URINE NEGATIVE (NEGATIVE); OCCULT BLOOD,URINE LARGE (NEGATIVE); PH,URINE 5.5 (5.0-8.0); PROTEIN,URINE 30 mg/dL (NEGATIVE); UROBILINOGEN,URINE 0.2 mg/dL (0.2-1.0)
[2024-05-06] MEDS: ondanSETRON 4MG INJ IVP ONE (11:24)
[2024-05-06 11:30] LABS: ADD UA MICROSCOPIC YES
[2024-05-06 11:53] LABS: BACTERIA,URINE RARE /HPF (None Seen); MUCUS,URINE RARE LPF (None Seen); NON-SQUAMOUS EPITHELIAL CELL 1 /HPF (0-2); OTHER CASTS, URINE 3 /LPF (None Seen); SQUAMOUS EPITHELIAL CELL,UR MANY /HPF (0-2); TRANSITIONAL EPI CELLS,URINE RARE /HPF (None Seen); YEAST,URINE BUDDING RARE /HPF (None Seen); YEAST,URINE HYPHAE RARE /HPF (None Seen)
[2024-05-06 13:07] LABS: CREATININE,URINE RANDOM 289.38 mg/dL (30-135); SODIUM,URINE RANDOM < 13 mmol/l (40-220)
[2024-05-06 13:17] LABS: HEMOGLOBIN A1C 4.5 % (4.0-6.0)
[2024-05-06 13:25] LABS: THYROID STIMULATING HORMONE 47.43 uIU/mL (0.36-3.74)
[2024-05-06] MEDS: ZOSYN 3.375GM +NS 50ML IVPB SCH (13:35)
[2024-05-06] MEDS: hydroMORPHone 0.5 MG SYG (0.5MG/0.5ML) IVP PRN (13:35)
[2024-05-06] MEDS: 0.9%NACL 1000ML 1,000 ML IV SCH (13:35)
[2024-05-06 14:14] LABS: INR 2.81 (0.85-1.15); PROTHROMBIN TIME 28.1 SEC (9.6-11.6)
[2024-05-06 14:19] LABS: HEMATOCRIT 21.4 % (36-48)
[2024-05-06 14:27] LABS: PARTIAL THROMBOPLASTIN TIME 60.1 SEC (26.3-35.5)
[2024-05-06] MEDS ORDERED: IOHEXOL-350 50ML VIAL IV ONE (15:43)
[2024-05-06 18:00] VITALS: O2SAT 99
[2024-05-06 18:29] VITALS: BP 91/58; PULSE 83; RESP 18; TEMP 97.9
[2024-05-06 20:08] VITALS: BP 128/64; PULSE 78; RESP 18; TEMP 98.6
[2024-05-06] MEDS: miDODRine HCL 5 MG TABLET PO SCH (20:16)
[2024-05-06 20:30] VITALS: O2SAT 96
[2024-05-06] MEDS: PANTOPrazole 40MG INJ 80 MG in 0.9%NACL 100ML 100 ML IV SCH (22:22)
[2024-05-06] MEDS: octREOtide aceTATe 1,250 MCG in 0.9% NACL 250ML 250 ML IV SCH (22:22)
[2024-05-06] MEDS: acetaMINOPHEN 500 MG TABLET PO PRN (22:46)
[2024-05-07] VITALS (9 sets, daily range): BP systolic 89–171; BP diastolic 43–65; PULSE 67–81; RESP 18–20; TEMP 97.3–98.8; O2SAT 96–98
[2024-05-07] MEDS: ALBUMIN (HUMAN) 25% 100 ML IV SCH (00:55)
[2024-05-07 02:33] LABS: HEMATOCRIT 21.4 % (36-48)
[2024-05-07 02:48] LABS: CREATININE 2.9 mg/dL (0.5-1.0); POTASSIUM 4.4 mmol/L (3.5-5.1)
[2024-05-07 05:03] LABS: % IRON SATURATION 65.3 % (22-44)
[2024-05-07] MEDS ORDERED: COMPOUND IV REFRIGERATED 1 EACH IVSOLN MISC PRN (07:30)
[2024-05-07 08:15] LABS: HEMATOCRIT 21.1 % (36-48)
[2024-05-07 10:32] LABS: ABG BASE EXCESS -6.8 mmol/L (-2.0-3.0); ABG HCO3 17.3 mmol/L (21.0-28.0); ABG OXYGEN SATURATION 96.4 % (94.0-98.0); ABG PCO2 31 mmHg (32-45); ABG PH 7.362 (7.350-7.450); DEVICE COMMENT TANYA RN LR; PO2, ARTERIAL BG 86.9 mmHg (83.0-108.0); VENT MODE, BG RA (ROOM AIR)
[2024-05-07] MEDS: PHYTONADIONE 10 MG in 0.9%NACL 50ML 50 ML IVPB ONE (11:00)
[2024-05-07] MEDS ORDERED: LACTULOSE 20 GM/30 ML UDCUP PO PRN (11:00)
[2024-05-07] MEDS ORDERED: GLUCAGON 1MG KIT 1 MG ML IM PRN (11:30)
[2024-05-07] MEDS ORDERED: PoTASSium chloRIDE 10MEQ/100ML 100 ML IV PRN (11:30)
[2024-05-07] MEDS ORDERED: DEXTROSE 50%-WATER 50 ML DISP.SYRIN IV PRN (11:30)
[2024-05-07] MEDS: SODIUM BICARBONATE 650 MG TAB PO SCH (13:49)
[2024-05-07] MEDS: LACTULOSE 20 GM/30 ML UDCUP PO SCH (13:50)
[2024-05-07 14:55] LABS: HEMATOCRIT 21.3 % (36-48)
[2024-05-07] MEDS ORDERED: PHARMACY COMMUNICATION 1 EACH EACH MISC SCH (16:30)
[2024-05-07] MEDS ORDERED: ALBUMIN (HUMAN) 25% 50 ML IV SCH (22:30)
[2024-05-07 23:08] LABS: HEMATOCRIT 23.1 % (36-48); MEAN CORPUSCULAR HEMOGLOBIN 31.5 pg (27.0-33.0); MEAN CORPUSCULAR HGB CONC 33.8 g/dL (32.0-36.0); MEAN CORPUSCULAR VOLUME 93.1 fL (79-99); RED BLOOD CELL COUNT(AUTO) 2.48 MIL/uL (4.00-5.50); RED CELL DISTRIBUTION WIDTH 17.4 % (11.0-15.5); WHITE BLOOD COUNT (AUTO) 12.3 K/uL (4.8-10.8)
[2024-05-08] VITALS (16 sets, daily range): BP systolic 95–120; BP diastolic 42–67; PULSE 64–83; RESP 15–18; TEMP 97.3–98.8; O2SAT 98
[2024-05-08 06:49] LABS: HEMATOCRIT 30.2 % (36-48); MEAN CORPUSCULAR HEMOGLOBIN 31.5 pg (27.0-33.0); MEAN CORPUSCULAR HGB CONC 34.1 g/dL (32.0-36.0); MEAN CORPUSCULAR VOLUME 92.4 fL (79-99); RED BLOOD CELL COUNT(AUTO) 3.27 MIL/uL (4.00-5.50); RED CELL DISTRIBUTION WIDTH 16.8 % (11.0-15.5); WHITE BLOOD COUNT (AUTO) 11.8 K/uL (4.8-10.8)
[2024-05-08 06:56] LABS: BILIRUBIN,DIRECT 5.2 mg/dL (0.0-0.3); BILIRUBIN,TOTAL 7.6 mg/dL (0.2-1.0); CREATININE 2.9 mg/dL (0.5-1.0); POTASSIUM 3.8 mmol/L (3.5-5.1); TOTAL PROTEIN, SERUM 6.4 g/dL (6.0-8.3)
[2024-05-08 06:59] LABS: INR 1.68 (0.85-1.15); PROTHROMBIN TIME 17.5 SEC (9.6-11.6)
[2024-05-08] MEDS: M.V.I. IV [ADULT] 10 ML, FOLic ACID 5 MG/ML VIAL 1 MG, THIAMINE HCL 100 MG in 0.9%NACL ... IV SCH (10:15)
[2024-05-08 12:34] LABS: ABG BASE EXCESS -7.2 mmol/L (-2.0-3.0); ABG HCO3 16.4 mmol/L (21.0-28.0); ABG OXYGEN SATURATION 95.4 % (94.0-98.0); ABG PCO2 29 mmHg (32-45); ABG PH 7.375 (7.350-7.450); PO2, ARTERIAL BG 77.3 mmHg (83.0-108.0); VENT MODE, BG RA (ROOM AIR)
[2024-05-08] MEDS ORDERED: SODIUM BICARBONATE 650 MG TAB PO PRN (13:00)
[2024-05-08] MEDS: HYDROcodone/APAP 5/325 1 TAB TABLET PO PRN (13:30)
[2024-05-08] MEDS: hydroMORPHone 0.5 MG SYG (0.5MG/0.5ML) IVP PRN (18:33)
[2024-05-09] VITALS (9 sets, daily range): BP systolic 87–110; BP diastolic 49–60; PULSE 55–68; RESP 16–18; TEMP 97.4–98.6; O2SAT 98
[2024-05-09 03:45] LABS: HEMATOCRIT 31.2 % (36-48); MEAN CORPUSCULAR HEMOGLOBIN 31.8 pg (27.0-33.0); MEAN CORPUSCULAR HGB CONC 34.3 g/dL (32.0-36.0); MEAN CORPUSCULAR VOLUME 92.6 fL (79-99); PLATELET COUNT (AUTO) 115 K/uL (130-400); RED BLOOD CELL COUNT(AUTO) 3.37 MIL/uL (4.00-5.50); RED CELL DISTRIBUTION WIDTH 18.1 % (11.0-15.5)
[2024-05-09 04:08] LABS: ALBUMIN 2.3 g/dL (3.5-5.0); BILIRUBIN,TOTAL 8.3 mg/dL (0.2-1.0); CREATININE 3.3 mg/dL (0.5-1.0); MAGNESIUM 1.8 mg/dL (1.80-2.40); POTASSIUM 3.5 mmol/L (3.5-5.1)
[2024-05-09] MEDS: MAGNESIUM 2GM PREMIX 50ML 50 ML IV PRN (06:43)
[2024-05-09] MEDS: PoTASSium chloRIDE 10MEQ SR 10 MEQ/TAB TAB.SR.24H PO PRN (09:54)
[2024-05-10] VITALS (8 sets, daily range): BP systolic 92–109; BP diastolic 41–57; PULSE 59–80; RESP 18; TEMP 97.7–98.8; O2SAT 97
[2024-05-10] MEDS ORDERED: SODIUM BICARBONATE 650 MG TAB PO PRN (02:00)
[2024-05-10 03:59] LABS: HEMATOCRIT 30.9 % (36-48); MEAN CORPUSCULAR HEMOGLOBIN 31.9 pg (27.0-33.0); MEAN CORPUSCULAR HGB CONC 34.3 g/dL (32.0-36.0); MEAN CORPUSCULAR VOLUME 93.1 fL (79-99); RED BLOOD CELL COUNT(AUTO) 3.32 MIL/uL (4.00-5.50); RED CELL DISTRIBUTION WIDTH 18.2 % (11.0-15.5)
[2024-05-10 04:26] LABS: BILIRUBIN,TOTAL 7.8 mg/dL (0.2-1.0); CREATININE 3.3 mg/dL (0.5-1.0); MAGNESIUM 2.1 mg/dL (1.80-2.40); POTASSIUM 3.7 mmol/L (3.5-5.1); TOTAL PROTEIN, SERUM 5.9 g/dL (6.0-8.3)
[2024-05-10] MEDS: ondanSETRON 4MG INJ IVP PRN (18:02)
[2024-05-10] MEDS ORDERED: LACTULOSE 20 GM/30 ML UDCUP PO SCH (23:00)
[2024-05-11] VITALS (8 sets, daily range): BP systolic 97–111; BP diastolic 34–70; PULSE 57–78; RESP 18–24; TEMP 97.4–98.5; O2SAT 97
[2024-05-11] MEDS: LACTULOSE 20 GM/30 ML UDCUP PO SCH (00:11)
[2024-05-11 04:16] LABS: BASOPHILS # (AUTO) 0.05 K/uL (0.00-0.20); BASOPHILS % (AUTO) 0.3 % (0.0-5.0); EOSINOPHILS % (AUTO) 1.4 % (0.0-8.0); HEMATOCRIT 31.1 % (36-48); LYMPHOCYTES # (AUTO) 1.6 K/uL (1.0-4.8); MEAN CORPUSCULAR HEMOGLOBIN 31.9 pg (27.0-33.0); MEAN CORPUSCULAR HGB CONC 34.4 g/dL (32.0-36.0); MEAN CORPUSCULAR VOLUME 92.8 fL (79-99); NEUTROPHILS # (AUTO) 11.4 K/uL (1.8-7.7); NEUTROPHILS % (AUTO) 79.6 % (40.0-77.0); PLATELET COUNT (AUTO) 110 K/uL (130-400); RED BLOOD CELL COUNT(AUTO) 3.35 MIL/uL (4.00-5.50); RED CELL DISTRIBUTION WIDTH 18.3 % (11.0-15.5); WHITE BLOOD COUNT (AUTO) 14.3 K/uL (4.8-10.8)
[2024-05-11 04:37] LABS: ALBUMIN 1.9 g/dL (3.5-5.0); BILIRUBIN,TOTAL 8.5 mg/dL (0.2-1.0); CREATININE 3.2 mg/dL (0.5-1.0); MAGNESIUM 2.1 mg/dL (1.80-2.40); POTASSIUM 3.4 mmol/L (3.5-5.1)
[2024-05-11 04:47] LABS: INR 1.61 (0.85-1.15); PROTHROMBIN TIME 16.8 SEC (9.6-11.6)
[2024-05-11] MEDS: PoTASSium chl 10% ELIXIR 20MEQ 20 MEQ/15 ML UDCUP PO PRN (06:01)
[2024-05-11] MEDS: PANTOPrazole 40 MG TAB DR PO SCH (09:03)
[2024-05-11] MEDS: ALBUMIN (HUMAN) 5% 250 ML IV SCH (11:19)
[2024-05-11] MEDS: RIFAXIMIN 550 MG TABLET PO SCH (23:19)
[2024-05-12] VITALS (9 sets, daily range): BP systolic 95–126; BP diastolic 59–66; PULSE 52–75; RESP 16–20; TEMP 97.8–98.7; O2SAT 97
[2024-05-12 04:02] LABS: BASOPHILS # (AUTO) 0.06 K/uL (0.00-0.20); BASOPHILS % (AUTO) 0.4 % (0.0-5.0); EOSINOPHILS # (AUTO) 0.17 K/uL (0.00-0.70); EOSINOPHILS % (AUTO) 1.1 % (0.0-8.0); IMMATURE GRANULOCYTE ABSOLUTE 0.11 K/uL (0-1); LYMPHOCYTES # (AUTO) 1.4 K/uL (1.0-4.8); MEAN CORPUSCULAR HEMOGLOBIN 32.3 pg (27.0-33.0); MEAN CORPUSCULAR HGB CONC 34.5 g/dL (32.0-36.0); MEAN CORPUSCULAR VOLUME 93.7 fL (79-99); MONOCYTES # (AUTO) 0.9 K/uL (0.1-1.0); MONOCYTES % (AUTO) 5.8 % (3.0-13.0); NEUTROPHILS # (AUTO) 12.8 K/uL (1.8-7.7); PLATELET COUNT (AUTO) 111 K/uL (130-400); RED BLOOD CELL COUNT(AUTO) 3.31 MIL/uL (4.00-5.50); WHITE BLOOD COUNT (AUTO) 15.4 K/uL (4.8-10.8)
[2024-05-12 04:16] LABS: ALBUMIN 2.2 g/dL (3.5-5.0); BILIRUBIN,TOTAL 9.1 mg/dL (0.2-1.0); CREATININE 3.2 mg/dL (0.5-1.0); MAGNESIUM 2.2 mg/dL (1.80-2.40); PHOSPHORUS 3.7 mg/dL (2.5-4.9); POTASSIUM 3.6 mmol/L (3.5-5.1); TOTAL PROTEIN, SERUM 6.5 g/dL (6.0-8.3)
[2024-05-12] MEDS: miDODRine HCL 5 MG TABLET PO SCH (13:25)
[2024-05-12] MEDS: ALBUMIN (HUMAN) 5% 250 ML IV SCH (13:53)
[2024-05-12] MEDS ORDERED: octREOtide aceTATe 100 MCG/ML AMP SQ SCH (18:00)
[2024-05-12] MEDS: octREOtide aceTATe 100 MCG/ML AMP SQ SCH (21:53)
[2024-05-13 03:48] LABS: BASOPHILS # (AUTO) 0.09 K/uL (0.00-0.20); BASOPHILS % (AUTO) 0.6 % (0.0-5.0); EOSINOPHILS # (AUTO) 0.31 K/uL (0.00-0.70); EOSINOPHILS % (AUTO) 2.2 % (0.0-8.0); HEMATOCRIT 29.2 % (36-48); LYMPHOCYTES # (AUTO) 1.3 K/uL (1.0-4.8); LYMPHOCYTES % (AUTO) 9.1 % (21.0-51.0); MEAN CORPUSCULAR HGB CONC 33.6 g/dL (32.0-36.0); MEAN CORPUSCULAR VOLUME 95.4 fL (79-99); MONOCYTES # (AUTO) 0.9 K/uL (0.1-1.0); MONOCYTES % (AUTO) 6.2 % (3.0-13.0); NEUTROPHILS # (AUTO) 11.4 K/uL (1.8-7.7); NEUTROPHILS % (AUTO) 81.2 % (40.0-77.0); PLATELET COUNT (AUTO) 105 K/uL (130-400); RED BLOOD CELL COUNT(AUTO) 3.06 MIL/uL (4.00-5.50); RED CELL DISTRIBUTION WIDTH 19.4 % (11.0-15.5)
[2024-05-13 04:01] LABS: ALBUMIN 2.2 g/dL (3.5-5.0); BILIRUBIN,TOTAL 8.9 mg/dL (0.2-1.0); CREATININE 3.5 mg/dL (0.5-1.0); POTASSIUM 3.1 mmol/L (3.5-5.1); TOTAL PROTEIN, SERUM 6.2 g/dL (6.0-8.3)
[2024-05-13 04:20] VITALS: BP 100/53; PULSE 53; RESP 20; TEMP 98
[2024-05-13 08:00] VITALS: BP 101/57; PULSE 65; RESP 16; TEMP 97.8
[2024-05-13 12:26] VITALS: BP 114/62; PULSE 58; RESP 16; TEMP 98.3
[2024-05-13] MEDS ORDERED: LORazepam 2 MG/ML 1 ML VIAL IVP PRN (15:30)
[2024-05-13] MEDS ORDERED: ondanSETRON 4MG TABLET PO PRN (16:00)
[2024-05-13] MEDS ORDERED: ondanSETRON 4MG INJ IVP PRN (16:00)
[2024-05-13 16:16] VITALS: BP 100/55; PULSE 56; RESP 16; TEMP 97.4
[2024-05-13] MEDS: hydroMORPHone 2 MG VIAL (2MG/ML) IVP PRN (17:45)
[2024-05-13 19:58] VITALS: BP 100/59; PULSE 59; RESP 18; TEMP 97.4
[2024-05-13 20:00] VITALS: O2SAT 97
[2024-05-14] VITALS (7 sets, daily range): BP systolic 95–139; BP diastolic 49–74; PULSE 60–70; RESP 17–22; TEMP 96.4–98.2; O2SAT 98
[2024-05-14 03:31] LABS: BASOPHILS # (AUTO) 0.07 K/uL (0.00-0.20); BASOPHILS % (AUTO) 0.5 % (0.0-5.0); EOSINOPHILS # (AUTO) 0.33 K/uL (0.00-0.70); EOSINOPHILS % (AUTO) 2.2 % (0.0-8.0); HEMATOCRIT 29.6 % (36-48); IMMATURE GRANULOCYTE ABSOLUTE 0.11 K/uL (0-1); LYMPHOCYTES # (AUTO) 1.8 K/uL (1.0-4.8); LYMPHOCYTES % (AUTO) 11.9 % (21.0-51.0); MEAN CORPUSCULAR HEMOGLOBIN 31.7 pg (27.0-33.0); MEAN CORPUSCULAR HGB CONC 33.1 g/dL (32.0-36.0); MEAN CORPUSCULAR VOLUME 95.8 fL (79-99); MONOCYTES % (AUTO) 6.5 % (3.0-13.0); NEUTROPHILS # (AUTO) 11.7 K/uL (1.8-7.7); NEUTROPHILS % (AUTO) 78.2 % (40.0-77.0); PLATELET COUNT (AUTO) 99 K/uL (130-400); RED BLOOD CELL COUNT(AUTO) 3.09 MIL/uL (4.00-5.50); RED CELL DISTRIBUTION WIDTH 20.2 % (11.0-15.5)
[2024-05-14 03:50] LABS: ALBUMIN 2.3 g/dL (3.5-5.0); BILIRUBIN,TOTAL 9.8 mg/dL (0.2-1.0); CREATININE 3.6 mg/dL (0.5-1.0); POTASSIUM 3.3 mmol/L (3.5-5.1); TOTAL PROTEIN, SERUM 6.6 g/dL (6.0-8.3)
[2024-05-14] MEDS: miDODRine HCL 5 MG TABLET PO SCH (14:01)
[2024-05-14] MEDS: RIFAXIMIN 550 MG TABLET PO SCH (21:00)
[2024-05-15 08:00] VITALS: BP 132/66; PULSE 82; RESP 16; TEMP 97.6
[2024-05-15 08:49] VITALS: O2SAT 98
[2024-05-15] MEDS: LACTULOSE 20 GM/30 ML UDCUP PO PRN (10:19)
[2024-05-15 12:00] VITALS: BP 100/59; PULSE 82; RESP 16; TEMP 97.6
== END 2024-05-15 14:20 | disposition hospice, home (50) | DRG 441 ==
LOC: EDH 09:26 → EDHIP 09:27 → 2DH 17:59 → 3AH 05-14 12:55
PROVIDERS: ADMIT Internal Medicine; ATTEND Internal Medicine
PROC: 30233N1 Transfusion of Nonautologous Red Blood Cells into Peripheral Vein, Percutaneous Approach (ICD-10-PCS; 2024-05-07)
PROC: 30233K1 Transfusion of Nonautologous Frozen Plasma into Peripheral Vein, Percutaneous Approach (ICD-10-PCS; principal; 2024-05-08)
PROC: 0DJ08ZZ Inspection of Upper Intestinal Tract, Via Natural or Artificial Opening Endoscopic (ICD-10-PCS; 2024-05-08)
DX: K76.7 Hepatorenal syndrome (principal); G93.41 Metabolic encephalopathy; I85.11 Secondary esophageal varices with bleeding; D62 Acute posthemorrhagic anemia; E46 Unspecified protein-calorie malnutrition; N39.0 Urinary tract infection, site not specified; N17.9 Acute kidney failure, unspecified; E87.1 Hypo-osmolality and hyponatremia; E87.21 Acute metabolic acidosis; K76.6 Portal hypertension; K80.00 Calculus of gallbladder with acute cholecystitis without obstruction; K57.30 Diverticulosis of large intestine without perforation or abscess without bleeding; E78.00 Pure hypercholesterolemia, unspecified; F32.A Depression, unspecified; F41.9 Anxiety disorder, unspecified; D50.9 Iron deficiency anemia, unspecified; D69.6 Thrombocytopenia, unspecified; E87.70 Fluid overload, unspecified; Z66 Do not resuscitate; K76.82 Hepatic encephalopathy; E11.649 Type 2 diabetes mellitus with hypoglycemia without coma; K31.9 Disease of stomach and duodenum, unspecified; N18.9 Chronic kidney disease, unspecified; E11.22 Type 2 diabetes mellitus with diabetic chronic kidney disease; I12.9 Hypertensive chronic kidney disease with stage 1 through stage 4 chronic kidney disease, or unspecified chronic kidney disease; E87.5 Hyperkalemia; E88.09 Other disorders of plasma-protein metabolism, not elsewhere classified; K31.89 Other diseases of stomach and duodenum; K74.69 Other cirrhosis of liver; I95.89 Other hypotension; R62.7 Adult failure to thrive; Z51.5 Encounter for palliative care; Z98.51 Tubal ligation status; Z90.49 Acquired absence of other specified parts of digestive tract; Z76.5 Malingerer [conscious simulation]; Z68.27 Body mass index [BMI] 27.0-27.9, adult
CPT/HCPCS: 36415; 36430; 36600; 43235; 74176; 74181; 76705; 76770; 80048; 80053; 80076; 81001; 82010; 82140; 82306; 82570; 82607; 82803; 82948; 83036; 83540; 83550; 83605; 83735; 84100; 84145; 84300; 84443; 85014; 85018; 85025; 85027; 85610; 85730; 86140; 86850; 86900; 86901; 86923; 86927; 87040; 87086; 87426; 93005; 96375; A4606; G0378; J1170; J1171; J2354; J2405; J2470; J2543; J3411; J3430; J3475; J3490; J7030; J7050; P9016; P9017; P9045; P9046; Q9967; A4215; A4222; A4223; A4620; S8037